=== PATIENT | male | born 1965 | race Caucasian/White ===

== ENCOUNTER 2019-08-27 04:52 | Emergency (ER) | payer SELFPAY ==
[~2019-08-27] VITALS: Ht 180.3 cm; Wt 117.9 kg
[2019-08-27 04:53] VITALS: Ht 180.3 cm; Wt 117.9 kg
[2019-08-27 06:39] LABS: CALCIUM 9.1 mg/dL (8.5-10.1); CARBON DIOXIDE 24.4 mmol/L (21-32); CREATININE SERUM 1.7 mg/dL (0.7-1.3); POTASSIUM SERUM 3.6 mmol/L (3.5-5.1)
[2019-08-27 07:20] VITALS: BP 177/113
[2019-08-27 07:46] LABS: microscopic required? YES; urine erythrocyte 1+ (NEGATIVE)
== END 2019-08-27 07:20 | disposition home or self-care (01) ==
LOC: ED 04:52
PROVIDERS: Emergency Medicine
DX: N13.2 Hydronephrosis with renal and ureteral calculous obstruction (principal); I10 Essential (primary) hypertension
CPT/HCPCS: J1885; J2270; J2405; J3010; J7030